=== PATIENT | male | born 1990 | race Caucasian/White ===

== ENCOUNTER 2020-06-29 16:54 | Emergency (ER) | payer OTHER ==
[~2020-06-29] VITALS: Ht 182.9 cm; Wt 108.0 kg
[2020-06-29 17:35] VITALS: BP 129/81
== END 2020-06-29 17:54 | disposition home or self-care (01) ==
LOC: EMS 16:54
DX: L40.9 Psoriasis, unspecified (principal)
CPT/HCPCS: 99283; Z7502